=== PATIENT | female | born 1960 | race Two or more races ===

== ENCOUNTER 2019-11-25 06:24 | Day surgery (SDC) | payer OTHER ==
[~2019-11-25 06:24] MED LIST: ANASTROZOLE1 MG PO; METFORMIN HCL750 MG PO; SIMVASTATIN20 MG PO; ZESTRIL2.5 MG PO
== END 2019-11-25 18:10 | disposition home or self-care (01) ==
LOC: CIR.AMB 06:24
PROVIDERS: ATTEND Surgery
DX: D05.11 Intraductal carcinoma in situ of right breast (principal)